=== PATIENT | male | born 1950 | race Caucasian/White ===

== ENCOUNTER 2018-05-06 06:46 | Day surgery (SDC) | payer OTHER ==
[2018-05-06] MEDS ORDERED: hydrALAzine 20 MG INJ (08:38)
[2018-05-06] MEDS ORDERED: PROPOFOL 40 ML (08:38)
== END 2018-05-06 12:14 | disposition home or self-care (01) ==
LOC: GIL 06:46
DX: Z12.11 Encounter for screening for malignant neoplasm of colon (principal); K64.8 Other hemorrhoids; E78.5 Hyperlipidemia, unspecified; E11.9 Type 2 diabetes mellitus without complications; I10 Essential (primary) hypertension
CPT/HCPCS: 45378; 82962